=== PATIENT | female | born 1990 | race American Indian/Alaskan Native ===

== ENCOUNTER 2016-10-17 20:56 | Emergency (ER) | payer OTHER ==
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
[2016-10-18 09:29] VITALS: BP 128/90
== END 2016-10-18 09:46 | disposition home or self-care (01) ==
LOC: ED 20:56
DX: S10.93XA Contusion of unspecified part of neck, initial encounter (principal); Z91.048 Other nonmedicinal substance allergy status; Z88.8 Allergy status to other drugs, medicaments and biological substances; V89.2XXA Person injured in unspecified motor-vehicle accident, traffic, initial encounter; Y93.89 Activity, other specified; Y99.9 Unspecified external cause status; Y92.410 Unspecified street and highway as the place of occurrence of the external cause
CPT/HCPCS: 36415; 72125; 84702